=== PATIENT | male | born 1965 | race Caucasian/White ===

== ENCOUNTER → 2016-09-11 | Outpatient (CLI) | payer BC ==
--- NOTE | 2016-09-11 12:23 | DI ---
History: Left hand pain. Three-view. Prior study: None. Findings: No focal erosions are seen. No fractures or dislocations are identified. There is a very sl ight degree of degenerative change at the left second PIP articulation. Slight scarring is noted at t he left first CMC articulation. Impression: Some minor degenerative changes left second PIP articulation and some minor degenerative changes left first CMC articulation. Other features of the study are unremarkable including the radio carpal junction
== END ==
LOC: ORTHO 09:19
PROVIDERS: ATTEND Physician Assistant
DX: M79.642 Pain in left hand (principal); M65.332 Trigger finger, left middle finger; M65.342 Trigger finger, left ring finger; F17.210 Nicotine dependence, cigarettes, uncomplicated
CPT/HCPCS: 73130

== ENCOUNTER 2016-09-25 06:27 | Day surgery (SDC) | payer BC ==
[~2016-09-25 06:27] MED LIST: LIDOCAINE W/ SODIUM BICARB 0.5 ML SYR ONE; Lactated Ringers 1,000 ML PRIMARY IV ONE; ceFAZolin Inj 2gm (Premix) 0 ML IV ONE
[2016-09-25] MEDS ORDERED: BUPivacaine Inj 0.25% PF - 10ml vial ONE (06:59)
[2016-09-25] MEDS ORDERED: IPRATROPIUM/ALBUTEROL SULFATE 3 ML NEB NEB ONE ×4 (07:00→09:45)
[2016-09-25] MEDS ORDERED: LIDOCAINE MPF 2% - 5 ML (20 MG/1 ML) ONE (07:23)
[2016-09-25] MEDS ORDERED: MIDAZOLAM 5 MG/1 ML ONE (07:23)
[2016-09-25] MEDS ORDERED: fentaNYL Inj 250 MCG/5 ML VIAL ONE (07:23)
[2016-09-25] MEDS ORDERED: ROCURONIUM 10 MG/1 ML - 5 ML VIAL IVP ONE (07:26)
[2016-09-25] MEDS ORDERED: ceFAZolin Inj 3 GM in Sodium Chloride 0.9% 100 ML IV ONE (07:30)
[2016-09-25] MEDS ORDERED: PHENYLEPHRINE 10,000 MCG/1 ML VIAL ONE (08:15)
[2016-09-25] MEDS ORDERED: Sodium Chloride 0.9% vial 10 ML ONE (08:16)
[2016-09-25] MEDS ORDERED: Lactated Ringers 1,000 ML PRIMARY IV ONE ×2 (08:47)
[2016-09-25] MEDS ORDERED: SUGAMMADEX SODIUM 200 MG/2 ML VIAL IV ONE (09:00)
[2016-09-25] MEDS ORDERED: NORMAL SALINE 10 ML SYRINGE FLUSH IVP PRN ×2 (09:13→09:34)
[2016-09-25] MEDS ORDERED: ONDANSETRON 4 MG/2 ML VIAL IVP PRN (09:13)
[2016-09-25] MEDS ORDERED: KETOROLAC 30 MG/1 ML VIAL ONE (09:14)
[2016-09-25] MEDS ORDERED: HYDROcodone-APAP 7.5 MG-325 MG TABLET PO PRN (09:18)
[2016-09-25] MEDS ORDERED: MORPHINE SULFATE 2 MG/1 ML IVP PRN (09:18)
[2016-09-25] MEDS ORDERED: Lactated Ringers 1,000 ML PRIMARY IV SCH ×2 (09:30→09:45)
[2016-09-25] MEDS ORDERED: HYDROmorphone 2 MG/1 ML IVP PRN (09:34)
[2016-09-25 09:40] VITALS: TEMP 97
[2016-09-25 09:57] VITALS: RESP 16
[2016-09-25] MEDS ORDERED: HYDROcodone-APAP 7.5 MG-325 MG TABLET PO ONE ×2 (10:10→10:12)
== END 2016-09-25 10:35 | disposition home or self-care (01) ==
LOC: SDSC 06:27
PROVIDERS: ATTEND Orthopaedic Surgery
DX: M65.342 Trigger finger, left ring finger (principal); M65.332 Trigger finger, left middle finger; M65.341 Trigger finger, right ring finger; M77.12 Lateral epicondylitis, left elbow
CPT/HCPCS: 26055 ×3; 94640; A4216; J1885; J2704; J3010; J7620; J0690; J2001; J2250; J2370; J7050; J7120

== ENCOUNTER → 2017-02-07 | Outpatient (CLI) | payer BC ==
--- NOTE | 2017-02-07 12:33 | DI ---
XR SHOULDER MIN 2VW,02/07/2017 10:02 AM: Clinical History: Acute right shoulder pain Previous Exam: None at this facility. Findings: 4 views of the right shoulder are obtained, and demonstrate anatomic alignment without fractures. The adjacent right lung and chest wall are unremarkable. Mild degenerative changes of the right acromioc lavicular joint are noted. Impression: Mild degenerative changes of the right acromioclavicular joint otherwise unremarkable.
--- NOTE | 2017-02-07 12:53 | DI ---
XR ELBOW COMPLETE MIN 3VW,02/07/2017 10:02 AM: Clinical History: Left elbow pain Previous Exam: None at this facility. Findings: 3 views the left elbow are obtained, and demonstrate anatomic alignment without fractures. Diffuse de generative changes are noted with osteophyte formation. There is no evidence of elbow joint effusion. 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
== END ==
LOC: ORTHO 10:14
PROVIDERS: ATTEND Orthopaedic Surgery
DX: M25.511 Pain in right shoulder (principal); M25.522 Pain in left elbow; M75.41 Impingement syndrome of right shoulder; G56.32 Lesion of radial nerve, left upper limb; M19.022 Primary osteoarthritis, left elbow; M24.522 Contracture, left elbow; F17.200 Nicotine dependence, unspecified, uncomplicated
CPT/HCPCS: 73030; 73080